=== PATIENT | female | born 1960 | race Caucasian/White ===

== ENCOUNTER → 2022-10-08 | Outpatient (CLI) | payer OTHER ==
--- NOTE | 2022-10-09 22:51 | MR ---
EXAMINATION TYPE: MR lumbar spine wo con DATE OF EXAM: 10/08/2022 8:21 PM COMPARISON: None. CLINICAL INDICATION: Female, 62 years old with history of M47.817; PHH, Low back pain that radiates i nto left and right buttocks TECHNIQUE: Multi planar, multi sequence imaging was performed utilizing: T1-weighted, T2-weighted, a nd turbo inversion recovery imaging of the lumbar spine. IV Contrast: cc . None. FINDINGS: Alignment: The lumbar vertebral bodies have preserved heights with grade 1 anterolisthesis of L4 on L 5. Cord: The conus medullaris and the distal spinal cord appear unremarkable with regards to their signa l intensity and morphology. Bones/Discs: Multilevel degeneration changes worse in the lower lumbar spine. There is osteophyte for mation, Modic endplate changes, and facet joint arthropathy present. There is an abundance of epidural fat from the inferior endplate of L4 and inferiorly. T12-L1: No evidence of significant spinal canal stenosis or neural foraminal stenosis. L1-L2: Disc bulge and facet joint arthropathy result in moderate spinal canal and moderate to severe bilateral neural foraminal stenosis. L2-L3: Disc bulge and facet joint arthropathy result in mild to moderate spinal canal and moderate bi lateral neural foraminal stenosis. L3-L4: Disc bulge and facet joint arthropathy result in mild to moderate spinal canal and moderate bi lateral neural foraminal stenosis. L4-L5: Disc uncovering from grade 1 anterolisthesis and facet joint arthropathy with moderate to jay jay re spinal canal stenosis and moderate to severe bilateral neural foraminal stenosis. L5-S1: Disc bulge and facet joint arthropathy result in mild spinal canal and moderate to severe bila teral neural foraminal stenosis. No significant spinal canal or neural foraminal stenosis in the remainder of the visualized levels. Other findings: None. IMPRESSION: 1. Epidural lipomatosis extending from the inferior aspect of L4 and inferiorly which narrows the th ecal sac around the roots. 2. Additional areas of narrowing and stenosis described above. Neural foraminal stenosis worse at L1 -L2 bilaterally and L4-L5 and L5-S1 and spinal canal stenosis at worse at L1-L2 with moderate L2-L3 w ith mild to moderate stenosis.
== END | disposition home or self-care (01) ==
LOC: RADMRIMAIN 19:15
PROVIDERS: ATTEND Orthopaedic Surgery
DX: E88.2 Lipomatosis, not elsewhere classified (principal); M47.26 Other spondylosis with radiculopathy, lumbar region; M99.73 Connective tissue and disc stenosis of intervertebral foramina of lumbar region; M48.061 Spinal stenosis, lumbar region without neurogenic claudication
CPT/HCPCS: 72148